=== PATIENT | male | born 1960 | race Caucasian/White ===

== ENCOUNTER 2019-04-06 15:45 | Inpatient (IN) | payer OTHER ==
[~2019-04-06] VITALS: Ht 172.7 cm; Wt 68.5 kg
[~2019-04-06 15:45] MED LIST: ALKA-SELTZER H1 EACH; ASPI81CH PO; CLOP75 PO; FAMO20 PO; FERR325 PO; FOLI1 PO; LISI20 PO; LISI5 PO; METO25ER PO; PANT40 PO; SIMV10 PO
[2019-04-06] MEDS ORDERED: OYSTER SHELL 51 EACH PO (16:00)
[2019-04-06] MEDS ORDERED: Plavix75 MG PO (16:00)
[2019-04-06] MEDS ORDERED: THERA-D2000 UNIT PO (16:00)
[2019-04-06] MEDS ORDERED: FISH OIL 1,0001 EAC1 PO (16:01)
[2019-04-06] MEDS ORDERED: GABA300 PO (16:02)
[2019-04-06] MEDS ORDERED: HYDR1TAB94 PO (16:03)
[2019-04-06] MEDS ORDERED: SYNTHROID150 MCG PO (16:04)
[2019-04-06] MEDS ORDERED: Super B With V1 EACH PO (16:05)
[2019-04-06] MEDS ORDERED: TOCO1000 PO (16:06)
[2019-04-06 16:48] LABS: BASOPHILS ABSOLUTE AUTO 0.11 K/mm3 (0.00-0.23); BASOPHILS PERCENT AUTO 1 % (0-2); EOSINOPHILS PERCENT AUTO 8 % (0-6); Hemoglobin 10.4 g/dL (13.5-17.5); IMMATURE GRAN ABSOLUTE AUTO 0.17 K/mm3 (0.00-0.10); IMMATURE GRAN PERCENT AUTO 1 % (0-1); LYMPHOCYTES ABSOLUTE AUTO 2.44 K/mm3 (0.84-5.20); LYMPHOCYTES PERCENT AUTO 21 % (21-46); MONOCYTES ABSOLUTE AUTO 1.16 K/mm3 (0.16-1.47); MONOCYTES PERCENT AUTO 10 % (4-13); Mean Corpuscular HGB 27.1 pg (26.0-34.0); Mean Corpuscular HGB Conc 32.5 g/dL (31.5-36.5); Mean Corpuscular Volume 83 fL (80-100); Mean Platelet Volume 9.3 fL (9.1-12.4); NEUTROPHILS ABSOLUTE AUTO 7.04 K/mm3 (1.96-9.15); NEUTROPHILS PERCENT AUTO 60 % (41-73); Platelet Count 537 K/mm3 (150-400); RDW Standard Deviation 42.7 fL (35.1-46.3); Red Blood Cell Count 3.84 M/mm3 (4.30-5.90); White Blood Cell Count 11.82 K/mm3 (4.00-11.30)
[2019-04-06 17:11] LABS: International Normalized Ratio 1.02; Prothrombin Time Results 10.9 Sec (9.7-11.5)
[2019-04-06 17:15] LABS: Albumin, Blood 2.9 g/dL (3.4-5.0); Albumin/Globulin Ratio 0.6 (0.8-1.8); Alk Phos 101 U/L (50-136); Anion Gap 4 mmol/L (6-16); Aspartate Aminotrans (AST/SGOT 20 U/L (12-37); Bilirubin, Total 0.2 mg/dL (0.1-1.0); Blood Urea Nitrogen 29 mg/dL (8-24); Bun/Creatinine Ratio 33.3 (12.0-20.0); CO2, Blood 28 mmol/L (21-32); Calcium, Blood 8.8 mg/dL (8.5-10.1); Chloride, Blood 100 mmol/L (98-108); Creatinine, Blood 0.87 mg/dL (0.60-1.20); Globulin, Blood 4.5 g/dL (2.2-4.0); Glomerular Filtration Rate >60 (60-); Glucose, Blood 119 mg/dL (70-99); Potassium, Blood 4.1 mmol/L (3.5-5.5); Sodium, Blood 132 mmol/L (136-145); Total Protein, Blood 7.4 g/dL (6.4-8.2); Troponin I 0.281 ng/mL (0.000-0.040)
[2019-04-06 17:18] LABS: Alanine Aminotransfer (ALT/SGP 35 U/L (12-78)
[2019-04-07 00:55] LABS: BASOPHILS ABSOLUTE AUTO 0.12 K/mm3 (0.00-0.23); BASOPHILS PERCENT AUTO 1 % (0-2); EOSINOPHILS ABSOLUTE AUTO 0.87 K/mm3 (0.00-0.68); EOSINOPHILS PERCENT AUTO 7 % (0-6); Hematocrit 29.9 % (37.0-53.0); Hemoglobin 9.8 g/dL (13.5-17.5); IMMATURE GRAN ABSOLUTE AUTO 0.19 K/mm3 (0.00-0.10); IMMATURE GRAN PERCENT AUTO 2 % (0-1); LYMPHOCYTES ABSOLUTE AUTO 2.82 K/mm3 (0.84-5.20); LYMPHOCYTES PERCENT AUTO 23 % (21-46); MONOCYTES ABSOLUTE AUTO 1.08 K/mm3 (0.16-1.47); MONOCYTES PERCENT AUTO 9 % (4-13); Mean Corpuscular HGB 27.2 pg (26.0-34.0); Mean Corpuscular HGB Conc 32.8 g/dL (31.5-36.5); Mean Corpuscular Volume 83 fL (80-100); Mean Platelet Volume 9.3 fL (9.1-12.4); NEUTROPHILS ABSOLUTE AUTO 7.23 K/mm3 (1.96-9.15); NEUTROPHILS PERCENT AUTO 59 % (41-73); Platelet Count 479 K/mm3 (150-400); RDW Coefficient Variation 14.1 % (11.7-14.2); RDW Standard Deviation 42.5 fL (35.1-46.3); White Blood Cell Count 12.31 K/mm3 (4.00-11.30)
[2019-04-07 01:11] LABS: Anion Gap 7 mmol/L (6-16); Blood Urea Nitrogen 24 mg/dL (8-24); Bun/Creatinine Ratio 32.2 (12.0-20.0); CO2, Blood 27 mmol/L (21-32); Calcium, Blood 8.7 mg/dL (8.5-10.1); Chloride, Blood 98 mmol/L (98-108); Creatinine, Blood 0.75 mg/dL (0.60-1.20); Glomerular Filtration Rate >60 (60-); Glucose, Blood 118 mg/dL (70-99); Potassium, Blood 3.9 mmol/L (3.5-5.5); Sodium, Blood 132 mmol/L (136-145)
--- NOTE | 2019-04-07 07:15 | NUR ---
ADMIT NOTE/SHIFT SUMMARY PATIENT ADMITTED EARLIER THIS SHIFT AND WAS SETTLED IN AND ORIENTED TO THE ROOM, UNIT, AND CALL LIGHT. PATIENT PLEASENT AND COOPERATIVE THROUGHOUT THE NIGHT. PATIENT MEDICATED FOR PAIN PER EMAR. PATIENT'S DRESSINGS CHANGED LAST NIGHT. PATIENT THEN APPEARED TO BE ABLE TO SLEEP WELL THROUGHOUT THE REST OF THE THE NIGHT. WILL CONTINUE TO MONITOR PATIENT AND REPORT TO ONCOMING RN.
--- NOTE | 2019-04-07 08:52 | NUR ---
AM NOTE... ASSUMED CARE OF PT APROX 0700. PT IS A&Ox4 PT IS A RECENT AKA. PT WAS ADMITTED FOR PVD TO THE LEFT LEG PT IS NPO FOR POSSIBLE ANGIO GRAM TODAY. PT'S VS STABLE AT THIS TIME. PT DENIES CHEST PAIN/PRESSURE N/V OR SOB. PT IS ON RA WIHT O2 SATS >92%. NO EDEMA NOTED ON ASSESSMENT. PT'S LEFT BIG TOE HAS ULCERATIONS AND PURPLE/DARK AREAS TO THE BOTTOM OF THE FOOT. PT C/O OF 5/10 PAIN TO THE LEG AND FOOT. PULSES WERE ONLY FOUND USING DOPPLER. CALL LIGHT IN REACH WILL CONTINUE TO MONITOR.
[2019-04-07 14:17] LABS: Percent Saturation 9.4 % (20.0-50.0)
--- NOTE | 2019-04-07 14:31 | NUR ---
Patient is sitting up in bed and alert. Patient explains about his medical history and the medical history of his family. Patient tells me about his family, his service, his spiritual journey and his struggles with his amputation. Patient's Mosque angle is very important to him. I listen empathically, hear confession, conduct a life review, reinforce helpful attitudes and practices, normalize patient's experience, recite inspiring Bible verses and provide pastoral trauma counsellor and prayer. Patient responds well and shows signs of catharsis and an elevated mood. I will continue to remain available to patient and family.
--- NOTE | 2019-04-07 18:12 | NUR ---
SHIFT SUMMARY... NO ACUTE NEGATIVE CHANGES NOTED THIS SHIFT. PT'S VS HAVE BEEN STABLE. PT HAS BEEN ON HEPARIN GTT PER ORDERS. PT HAS BEEN NPO FOR PROCEDURE. PT DENIED ANY CHEST PAIN/PRESSURE THIS SHIFT. PER PROVIDER PT'S EKG SHOWS ST CHANGES, NEW TROPS WERE DRAWN AND THEY WERE ELEVATED (SEE LABS). PT WAS TAKEN TO POT FLUXER FOR THE REVASC OF HIS LEFT LEG AND POSSIBLE ANGIO OF THE HEART. PT HAD TOLD HEART CENTER STAFF THAT HE HAS HAD A CABG IN THE PAST. CALL LIGHT IN REACH WILL CONTINUE TO MONITOR UNTIL REPORT IS GIVEN TO ONCOMING RN.
--- NOTE | 2019-04-07 19:35 | NUR ---
RETURN FROM DIRECTOR OF CAPITAL GIVING PT RETURNED TO PCU RM 8 FROM DIRECTOR OF CAPITAL GIVING @ APPROX 1915. PT A&O X4. VSS. R GROIN SITE WNL W/ NO BLEEDING & NO HEMATOMA. CALL TO MD MIRELES FOR HEPARIN GTT CLARIFICATION W/ INSTRUCTIONS FROM MD TO HOLD HEPARIN GTT FOR 1 HR POST OP, HEPARIN TO RESUME @ 2029. PT LYING FLAT IN BED W/ ORDERS FOR BEDREST X 2HRS PER MD. WILL CONTINUE TO MONITOR AND PROVIDE CARE. PETROLEUM ENGINEERING PROFESSOR ENRIQUETA TO ASSUME CARE FOR NOC.
--- NOTE | 2019-04-08 01:53 | NUR ---
ARRIVED FROM [facility] PATIENT ARRIVED FROM [facility] PROCEDURE AT 1914 ON HIS PCU BED, ALERT AND ORIENTED IN NO OBVIOUS DISTRESS. ALL VSS, SATURATING AT 99% ON ROOM AIR. FEMORAL ACCESS SITE IS INTACT, COVERED WITH CLEAR FILM DRESSING, NO HEMATOMA, NO BLEEDING, NO SWELLING, NO NEW REDNESS. PATIENT INSTRUCTED TO LAY FLAT UNTIL 2129, WHEN NURSING STAFF WILL BEGIN RAISING HEAD OF BED. WILL CONTINUE TO MONITOR AND PROVIDE CARE, BED LOCKED AND LOW, CALL LIGHT IN REACH
[2019-04-08 04:04] LABS: BASOPHILS PERCENT AUTO 1 % (0-2); EOSINOPHILS ABSOLUTE AUTO 0.51 K/mm3 (0.00-0.68); EOSINOPHILS PERCENT AUTO 6 % (0-6); Hematocrit 32.3 % (37.0-53.0); Hemoglobin 10.3 g/dL (13.5-17.5); IMMATURE GRAN ABSOLUTE AUTO 0.14 K/mm3 (0.00-0.10); IMMATURE GRAN PERCENT AUTO 2 % (0-1); LYMPHOCYTES ABSOLUTE AUTO 2.03 K/mm3 (0.84-5.20); LYMPHOCYTES PERCENT AUTO 22 % (21-46); MONOCYTES ABSOLUTE AUTO 0.83 K/mm3 (0.16-1.47); MONOCYTES PERCENT AUTO 9 % (4-13); Mean Corpuscular HGB Conc 31.9 g/dL (31.5-36.5); Mean Corpuscular Volume 85 fL (80-100); Mean Platelet Volume 9.4 fL (9.1-12.4); NEUTROPHILS ABSOLUTE AUTO 5.44 K/mm3 (1.96-9.15); NEUTROPHILS PERCENT AUTO 60 % (41-73); Platelet Count 507 K/mm3 (150-400); RDW Coefficient Variation 14.1 % (11.7-14.2); RDW Standard Deviation 43.7 fL (35.1-46.3); Red Blood Cell Count 3.82 M/mm3 (4.30-5.90); White Blood Cell Count 9.05 K/mm3 (4.00-11.30)
[2019-04-08 04:23] LABS: Anion Gap 6 mmol/L (6-16); Blood Urea Nitrogen 17 mg/dL (8-24); Bun/Creatinine Ratio 20.3 (12.0-20.0); CO2, Blood 27 mmol/L (21-32); Calcium, Blood 8.8 mg/dL (8.5-10.1); Chloride, Blood 100 mmol/L (98-108); Creatinine, Blood 0.84 mg/dL (0.60-1.20); Glomerular Filtration Rate >60 (60-); Glucose, Blood 106 mg/dL (70-99); Sodium, Blood 133 mmol/L (136-145)
--- NOTE | 2019-04-08 07:48 | NUR ---
SHIFT SUMMARY HEPARIN DRIP WAS STARTED 2029, AND TITRATED PLUS BOLUS PER PHARMACY ORDER AT 0450. PATIENT WAS TREATED AND MEDICATED PER EMAR AND UNIT PROTOCOL INCLUDING PRN PAIN MEDICATION TWICE THIS SHIFT. PATIENT'S HEART RATE REMAINED IN THE 100'S OTHERWISE ALL VSS AND WNL. PATIENT DENIED PAIN OUT OF PROPORTION. CARE AND REPORT GIVEN TO ONCOMING SHIFT AT 0700, PATIENT AWAKE AND ALERT IN BED, CALL LIGHT IN REACH
--- NOTE | 2019-04-08 08:27 | NUR ---
AM NOTE... ASSUMED CARE OF PT APROX 0700. PT IS A&Ox4 AND IND/SBA IN THE ROOM. PT IS S/P ANGIO. PT IS POSSIBLE COBRA TRANSFER FOR BYPASS PER DR. MIRELES. PT'S VS STABLE PT IS ON HEPARIN GTT PER ORDERS. PT HAS BEEN MEDICATED FOR PAIN PER EMAR. NO EDEMA NOTED ON ASSESSMENT. L/S CLEAR. RIGHT GROIN SITE IS C/D/I WITH NO SWELLING, BLEEDING OR HEMATOMA NOTED.
--- NOTE | 2019-04-08 11:11 | NUR ---
Echocardiogram completed.
--- NOTE | 2019-04-08 13:32 | NUR ---
Spiritual care vsiit conducted. Patient is sitting up in bed and patient's spouse Lisa is bedside. Patient tell me of the recent findings and that [place] Patient and Lisa tell me of their concerns. I listen empathically and provide anxiety containment and prayer. Patient and Lisa show signs of reduced stress. I will continue to remain available to patient and family.
--- NOTE | 2019-04-08 17:14 | NUR ---
PT'S SON TO [facility] WITH CLOTHES AND PERSONAL W/C. SON ASSISTED PT IN GETTING DRESSED AND TO W/C. TRANSPORTATION JUST HERE TO TAKE PT TO DAUGHTERS HOUSE WHERE PT LIVES.
--- NOTE | 2019-04-08 18:58 | NUR ---
SHIFT SUMMARY NO ACUTE CHANGES TO PRESENT THIS SHIFT. PT TX FROM PCU 8 TO RM 341 VIA W/C. A&O, SULY AND CO-OP. PT JUST WAITING TO RETURN TO [place] ON THURSDAY, UNABLE TO D/C BACK TODAY. PT WITH RECENT R AKA; CHUCK IN PLACE. R STUMP HEALING WNL;S. ANGIO GRAM DONE TO ATTEMPT REVASCULARIZATION TO LLE. PT TO RETURN TO [place] AND THEN [facility] TO F/U. R GROIN SITE WNL'S WELL. NO C/O. PT DENIED NEEDS. CALL LT IN REACH. TO RM DURING TX AND THEN WENT HOME.
--- NOTE | 2019-04-09 05:32 | NUR ---
SHIFT SUMMARY: PULSE 110 AND 103. AFEB. A/OX4, COMMUNICATES NEEDS. REPORTING PAIN IN LLE 09/15, NORCO ADMINISTERED ORDERED X 3 TONIGHT. PT STATES PAIN DOWN TO 10. VERY FAINT PEDAL PULSE. CAP REFILL DIFFICULT TO SEE IN LLE. TISSUE NECROSIS BETWEEN GREAT TOE AND SECOND TOE ON L FOOT. PT STATES LIDOCAINE HELPS GREATLY WITH NECROTIC PAIN. MEPILEX DRSG CHANGED TO L LATERAL THIGH AND L BUTTOCKS. EACH SITE WITH 2 ULCERATIONS. ALL 4 ULCERS DRY AND WITHOUT ERYTHEMA. RFA ACCESS SITE WITH TEGADERM CHG DRESSING IN PLACE. NO BLEEDING OR ERYTHEMA AT THE SITE. R AKA STUMP FREDDY WITH SUTURES AND CHUCK IN PLACE. INCISION EDGES WELL APPROXIMATED. NO DRAINAGE, NO ERYTHEMA. PT STATES HE SLEPT OK. NO ACUTE CHANGES OVERNIGHT. BED LOW, CALL BUTTON IN REACH. WILL CONT TO MONITOR.
--- NOTE | 2019-04-09 16:58 | NUR ---
Shift Summary A/Ox4, pleasant with care t/o shift. Calls appropriately for needs. Medicated for pain x 2 with moderate results. Pt voices that gabapentin works better with controlling pain. Independently uses urinal at bedside. No other acute changes or concerns. Will continue to monitor.
--- NOTE | 2019-04-10 05:26 | NUR ---
SHIFT SUMMARY: VSS. PULSE 103. PT REPORTS WORSE PAIN IN LLE TONIGHT. INITIAL NORCO GIVEN AT HS HAD NO EFFECT ON PAIN. SECOND DOSE TONIGHT BROUGHT PAIN LEVEL DOWN TO PT'S EXPECTED RANGE. LLE DUSKY, COOL TO TOUCH. PEDAL PULSE THREADY. CAP REFILL DIFFICULT TO SEE. DRESSING TO L LATERAL THIGH AND L BUTTOCKS C/D/I. NO ACUTE CHANGES. WILL CONT TO MONITOR.
[2019-04-10 06:15] LABS: CHOL/HDL RATIO 3.7; Cholesterol 147 mg/dL (50-200); HDL Cholesterol 40 mg/dL (>39); LDL/HDL RATIO 2.1; Low Density Lipoprotein Chol 86 mg/dL (0-110); Triglycerides 107 mg/dL (30-160); Very Low Density Lipoprot Chol 21 mg/dL (6-32)
[2019-04-10 14:21] LABS: Mean Platelet Volume 9.4 fL (9.1-12.4); Platelet Count 455 K/mm3 (150-400)
--- NOTE | 2019-04-10 16:39 | NUR ---
Shift Summary A/Ox4, patient had shower today with assistance from . Medicated for pain x 2 with good results. and patient were concerned with making it to their appointment tomorrow in [place] for f/u with vascular; otherwise, no other concerns at this time. Will continue to monitor.
[2019-04-11] MEDS ORDERED: LIDO5TO TOP (00:40)
[2019-04-11] MEDS ORDERED: B Complex-Foli1 EACH PO (00:41)
[2019-04-11] MEDS ORDERED: TOCO1000 PO (00:41)
--- NOTE | 2019-04-11 04:33 | NUR ---
SHIFT SUMMARY- PT. A&O, PLEASANT AND COOPERATIVE WITH CARE. RESTED ON/OFF DURING THE NIGHT. C/O LLE PAIN T/O THE SHIFT. NORCO AND TOPICAL LIDOCAINE GIVEN PER EMAR. PT. STATES MINIMAL RELIEF. ON HEPARIN GTT, TOLERATING WELL. PT. ANTICIPATING D/C TO [facility] AND F/U APPT W/VASCULAR [place]. NO ACUTE CHANGES TO CONDITION OVERNIGHT. CALL LIGHT WITHIN REACH AND SIDE RAILS UP X2. WILL CONT TO MONITOR.
--- NOTE | 2019-04-11 10:09 | NUR ---
DISCHARGE NOTE [facility] AT 10AM AFTER DR MIRELES SAW HIM AT THE BEDSIDE. DR MIRELES STATED THAT FOOT LOOKS WORSE. MOTTLING PRESENT ON L POSTERIOR LEG, L GREAT TOE DUSKY AND L SMALLEST TWO TOES NOW DUSKY ALSO (NEW FROM YESTERDAY PER PT). PAINFUL THIS MORNING, GAVEY GABAPENTIN AND PRN NORCO WHICH HELPED. HEP DRIP STOPPED AROUND 0830, PIV REMOVED. FIRST XARELTO DOSE GIVEN. NEW DRESSINGS GIVEN FOR L LATERAL THIGH AND L BUTTOCK WOUNDS (DRESSINGS C/D/I AND WOUNDS DIME SIZED AND HEALING WELL). PT CAN STAND AND PIVOT FROM BED TO . GAVE REPORT TO [place] [facility], THEY HAVE ALREADY ARRANGED [facility]SP[facility] [place]. TOOK MEDS PRESCRIBED.
[2019-04-11] MEDS ORDERED: ASPI81CH PO (12:31)
[2019-04-11] MEDS ORDERED: ATOR20 PO (12:31)
[2019-04-11] MEDS ORDERED: DOCU100 PO (12:32)
[2019-04-11] MEDS ORDERED: FERSU300 PO (12:34)
[2019-04-11] MEDS ORDERED: METO25 PO (12:40)
[2019-04-11] MEDS ORDERED: XARELTO20 MG PO (12:40)
[2019-04-11] MEDS ORDERED: ASCO500 PO (12:41)
== END 2019-04-11 10:03 | DRG 287 ==
LOC: ER 15:45 → PCU 20:20 → MEDS 04-08 14:33 → ENPENDDIS 04-11 08:21 → MEDS 04-11 10:03
PROVIDERS: Emergency Medicine; Internal Medicine; Nurse Practitioner Acute Care; Pharmacist; Physician Assistant; ADMIT Internal Medicine
PROC: 4A023N7 Measurement of Cardiac Sampling and Pressure, Left Heart, Percutaneous Approach (ICD-10-PCS; principal; 2019-04-07)
PROC: B2111ZZ Fluoroscopy of Multiple Coronary Arteries using Low Osmolar Contrast (ICD-10-PCS; 2019-04-07)
PROC: B2111ZZ Fluoroscopy of Multiple Coronary Arteries using Low Osmolar Contrast (ICD-10-PCS; 2019-04-07)
PROC: B51V1ZZ Fluoroscopy of Other Veins using Low Osmolar Contrast (ICD-10-PCS; 2019-04-07)
DX: I77.9 Disorder of arteries and arterioles, unspecified (principal); Z89.611 Acquired absence of right leg above knee; I25.2 Old myocardial infarction; I10 Essential (primary) hypertension; E03.9 Hypothyroidism, unspecified; D50.9 Iron deficiency anemia, unspecified; K21.9 Gastro-esophageal reflux disease without esophagitis; G51.0 Bell's palsy; I71.4 Abdominal aortic aneurysm, without rupture; Z95.1 Presence of aortocoronary bypass graft
CPT/HCPCS: 36415; 75625; 75716; 75774; 80048; 80053; 80061; 82728; 83036; 83540; 83550; 84484; 85025; 85049; 85610; 85730; 93005; 93010; 93306; 93455; 96365; 96366; 96376; 97116; 97162; 97165; 97530; 99152; 99153; 99285-25; A9270-GY; C1760; C1769; C1887; C1894; J1644; J2250; J3010; J7030; Q9967

== ENCOUNTER → 2020-12-13 | Outpatient (CLI) | payer OTHER ==
[~2020-12-13] MED LIST changes: +ASCO500 PO; +ATOR20 PO; +B Complex-Foli1 EACH PO; +DOCU100 PO; +FERSU300 PO; +FISH OIL 1,0001 EAC1 PO; +GABA300 PO; +HYDR1TAB94 PO; +LIDO5TO TOP; +METO25 PO; +OYSTER SHELL 51 EACH PO; +Plavix75 MG PO; +SYNTHROID150 MCG PO; +Super B With V1 EACH PO; +THERA-D2000 UNIT PO; +TOCO1000 PO; +XARELTO20 MG PO
== END | disposition home or self-care (01) ==
LOC: LAB SHORT 09:00
DX: E03.9 Hypothyroidism, unspecified (principal)
CPT/HCPCS: 84443